=== PATIENT | male | born 1945 | race African-American/Black ===

== ENCOUNTER 2018-12-08 14:24 | Inpatient (IN) ==
[2018-12-08 15:04] LABS: Basophils # 0.1 10*3/uL (0.0-0.2); Basophils % 0.9 % (0.0-0.8); Eosinophils % 0.3 % (0.00-10.9); Hematocrit 34.7 VOL% (42.0-52.0); Hemoglobin 11.7 GM/DL (14.0-18.0); Immature Granulocytes % 0.5 %; Immature Granulocytes Absolute 0.03 #; Lymphocytes # 0.5 10*3/uL (1.4-4.0); Lymphocytes % 8.6 % (21.2-54.2); Mean Corpuscular HGB Conc 33.7 GM/DL (32-36); Mean Corpuscular Volume 86.1 FL (87-102); Mean Platelet Volume 9.1 FL (9.6-12.0); Monocytes % 8.9 % (1.7-12.7); Neutrophils % 80.8 % (38.7-73.9); Platelet Count 212 T/CUMM (130-400); Red Blood Count 4.03 MC/CUMM (3.8-5.5); Red Cell Distribution Width 20.7 % (9.3-17.3); White Blood Count 5.8 T/CUMM (4-12)
[2018-12-08 15:11] LABS: PT Patient Result 10.4 SECS (9.6-12.2); Partial Thromboplastin Time 26.3 SECS (20.8-36.0)
[2018-12-08 15:17] LABS: Albumin 3.1 G/DL (3.4-5.0); Bilirubin,Total 0.6 MG/DL (0.2-1.0); Calcium 8.8 MG/DL (8.5-10.1); Osmolality,Calculated 278.4 MOS/KG (273-304); Total Protein 7.8 G/DL (6.4-8.3)
[2018-12-08 15:55] LABS: Barbiturates Screen,Urine Negative (Negative); Benzodiazepines Screen,Urine Positive (Negative); Cannabinoid Screen,Urine Negative (Negative); Opiate Screen,Urine Negative (Negative); Phencyclidine Screen,Urine Negative (Negative)
[2018-12-08] MEDS ORDERED: NICOTINE 21 MG/24 HR PATCH TRANSDERM PRN (16:17)
[2018-12-08] MEDS ORDERED: THIAMINE INJ 100 MG, FOLIC ACID INJ 1 MG, MULTIVITAMIN INJ 10 ML in SODIUM CHLORIDE 0.9... IV ONE (16:17)
[2018-12-08] MEDS ORDERED: LORazepam 2 MG/1 ML VIAL IV PRN ×2 (16:17→20:46)
[2018-12-08] MEDS ORDERED: ONDANSETRON 4 MG/2 ML VIAL IV PRN (16:17)
[2018-12-08] MEDS: hydrALAZINE 20 MG/1 ML VIAL IV PRN ×2 (16:57→22:28)
[2018-12-08] MEDS: chlordiazePOXIDE 25 MG CAPSULE PO SCH ×2 (18:25→21:55)
[2018-12-08] MEDS ORDERED: DICYCLOMINE 10 MG CAPSULE PO PRN (20:46)
[2018-12-08] MEDS ORDERED: ALUMINUM/MAGNES/SIMETH MAX STR 30 ML UDCUP PO PRN (20:55)
[2018-12-08] MEDS: LORazepam 2 MG/1 ML VIAL IV SCH (22:27)
[2018-12-09] MEDS: SODIUM CHLORIDE 0.9% 1,000 ML IV SCH ×3 (01:00→09:29)
[2018-12-09] MEDS: LORazepam 2 MG/1 ML VIAL IV SCH ×5 (02:00→17:49)
[2018-12-09 05:04] LABS: Basophils # 0.1 10*3/uL (0.0-0.2); Basophils % 0.5 % (0.0-0.8); Hematocrit 32.7 VOL% (42.0-52.0); Hemoglobin 11.3 GM/DL (14.0-18.0); Immature Granulocytes % 0.9 %; Immature Granulocytes Absolute 0.13 #; Lymphocytes # 2.2 10*3/uL (1.4-4.0); Lymphocytes % 14.9 % (21.2-54.2); Mean Corpuscular HGB Conc 34.6 GM/DL (32-36); Mean Corpuscular Volume 84.1 FL (87-102); Mean Platelet Volume 9.5 FL (9.6-12.0); Monocytes % 12.2 % (1.7-12.7); Neutrophils % 71.5 % (38.7-73.9); Platelet Count 206 T/CUMM (130-400); Red Blood Count 3.89 MC/CUMM (3.8-5.5); Red Cell Distribution Width 20.4 % (9.3-17.3); White Blood Count 14.5 T/CUMM (4-12)
[2018-12-09 05:44] LABS: Albumin 2.8 G/DL (3.4-5.0); Bilirubin,Total 1.2 MG/DL (0.2-1.0); Calcium 8.6 MG/DL (8.5-10.1); Osmolality,Calculated 272.5 MOS/KG (273-304); Risk Ratio 1.45; Thyroid Stimulating Hormone 1.9 uIU/ml (0.358-3.74); VLDL CHOLESTEROL 13.8 MG/DL
[2018-12-09] MEDS: amLODIPine 5 MG TABLET PO SCH (09:28)
[2018-12-09] MEDS: PANTOPRAZOLE 40 MG TABLET PO SCH (09:28)
[2018-12-09] MEDS ORDERED: POTASSIUM CHLORIDE INJ 40 MEQ in SODIUM CHLORIDE 0.9% 1,000 ML IV SCH (10:00)
[2018-12-09] MEDS ORDERED: MAGNESIUM SULF RIDER 2 GM in PREMIX 1 EACH IV ONE (11:12)
[2018-12-09] MEDS: THIAMINE 100 MG TABLET PO SCH (11:52)
[2018-12-09] MEDS: SODIUM CHLOR 0.9% KCL 40 MEQ 40 MEQ/1,000 ML BAG IV SCH (11:53)
[2018-12-10] MEDS: SODIUM CHLOR 0.9% KCL 40 MEQ 40 MEQ/1,000 ML BAG IV SCH ×2 (01:07→04:38)
[2018-12-10] MEDS: LORazepam 2 MG/1 ML VIAL IV SCH ×3 (01:13→10:19)
[2018-12-10] MEDS: hydrALAZINE 20 MG/1 ML VIAL IV PRN (04:55)
[2018-12-10 05:43] LABS: Basophils % 0.2 % (0.0-0.8); Hematocrit 34.6 VOL% (42.0-52.0); Hemoglobin 11.9 GM/DL (14.0-18.0); Immature Granulocytes % 1.1 %; Immature Granulocytes Absolute 0.19 #; Lymphocytes # 1.2 10*3/uL (1.4-4.0); Lymphocytes % 6.8 % (21.2-54.2); Mean Corpuscular HGB Conc 34.4 GM/DL (32-36); Mean Corpuscular Volume 85.2 FL (87-102); Mean Platelet Volume 10.2 FL (9.6-12.0); Monocytes % 12.5 % (1.7-12.7); Neutrophils % 79.4 % (38.7-73.9); Platelet Count 228 T/CUMM (130-400); Red Blood Count 4.06 MC/CUMM (3.8-5.5); Red Cell Distribution Width 20.3 % (9.3-17.3); White Blood Count 17.1 T/CUMM (4-12)
[2018-12-10 06:11] LABS: Albumin 2.8 G/DL (3.4-5.0); Bilirubin,Total 1.7 MG/DL (0.2-1.0); Calcium 8.8 MG/DL (8.5-10.1); Osmolality,Calculated 267.8 MOS/KG (273-304); Total Protein 7.2 G/DL (6.4-8.3)
[2018-12-10] MEDS: amLODIPine 5 MG TABLET PO SCH (08:57)
[2018-12-10] MEDS: PANTOPRAZOLE 40 MG TABLET PO SCH (08:57)
[2018-12-10] MEDS: MAGNESIUM OXIDE 400 MG TABLET PO SCH ×2 (08:57→20:35)
[2018-12-10] MEDS: THIAMINE 100 MG TABLET PO SCH (08:57)
[2018-12-10 11:59] LABS: Apearance,Urine CLOUDY (Clear); Bacteria,Urine Occasional /HPF (Few); Bilirubin,Urine Negative (Negative); Blood, Urine Large mg/dL (Negative); Glucose,Urine (UA) Negative (Negative); Ketones,Urine 20 mg/dL (Negative); Nitrite,Urine Positive (Negative); Protein,Urine 30 MG/DL; RBC,Urine 46 /HPF (0-4); Squamous Epithelial Cell,Urine Occasional /HPF (0-10); Urine Color Yellow (Yellow); Urine Specific Gravity 1.011 (1.001-1.035); WBC,Urine 151 /HPF (0-6)
[2018-12-10] MEDS: DEXT 5% NACL 0.45% KCL 40 MEQ 40 MEQ/1,000 ML BAG IV SCH ×2 (12:50→20:34)
[2018-12-10] MEDS: HydrOXYzine PAMOATE 25 MG CAPSULE PO PRN (21:54)
[2018-12-10] MEDS: traZODone 50 MG TABLET PO PRN (21:55)
[2018-12-10] MEDS: IBUPROFEN 600 MG TABLET PO PRN (23:09)
[2018-12-11 04:51] LABS: Basophils % 0.1 % (0.0-0.8); Eosinophils % 0.1 % (0.00-10.9); Hematocrit 28.4 VOL% (42.0-52.0); Hemoglobin 9.9 GM/DL (14.0-18.0); Immature Granulocytes % 1.6 %; Immature Granulocytes Absolute 0.24 #; Lymphocytes # 1.2 10*3/uL (1.4-4.0); Lymphocytes % 8.2 % (21.2-54.2); Mean Corpuscular HGB Conc 34.9 GM/DL (32-36); Mean Corpuscular Volume 83.5 FL (87-102); Mean Platelet Volume 9.6 FL (9.6-12.0); Monocytes % 10.6 % (1.7-12.7); Neutrophils % 79.4 % (38.7-73.9); Platelet Count 197 T/CUMM (130-400); Red Cell Distribution Width 19.9 % (9.3-17.3); White Blood Count 15.1 T/CUMM (4-12)
[2018-12-11 05:29] LABS: Calcium 8.3 MG/DL (8.5-10.1)
[2018-12-11 07:53] LABS: Band Neutrophils 1 % (0-10); Hypochromasia 1+; Lymphocytes 3 % (20-55); Metamyelocytes 1 %; Microcytosis 1+; Polychromasia Slight; Segmented Neutrophils 91 % (50-85); Total Cells Counted 100
[2018-12-11 07:54] LABS: Anisocytosis 2+; Ovalocytes Slight
[2018-12-11 07:55] LABS: Platelet Estimate Adequate; Spherocytes Few; Stomatocytes Slight; Tear Drop Cells Slight
[2018-12-11] MEDS: PANTOPRAZOLE 40 MG TABLET PO SCH (09:30)
[2018-12-11] MEDS: amLODIPine 5 MG TABLET PO SCH (09:30)
[2018-12-11] MEDS: MAGNESIUM OXIDE 400 MG TABLET PO SCH ×2 (09:30→20:45)
[2018-12-11] MEDS: THIAMINE 100 MG TABLET PO SCH (09:30)
[2018-12-11] MEDS: DEXT 5% NACL 0.45% KCL 40 MEQ 40 MEQ/1,000 ML BAG IV SCH ×2 (09:31→14:18)
[2018-12-11] MEDS: IBUPROFEN 600 MG TABLET PO PRN ×2 (09:35→21:20)
[2018-12-11] MEDS: predniSONE 20 MG TABLET PO SCH ×2 (10:47→20:45)
[2018-12-11] MEDS ORDERED: MAGNESIUM SULF RIDER 2 GM in PREMIX 1 EACH IV ONE (12:14)
[2018-12-11] MEDS: cefTRIAXone 2,000 MG in SYRINGE 1 EACH IV SCH (14:18)
[2018-12-11] MEDS: METHOCARBAMOL 750 MG TABLET PO PRN (17:52)
[2018-12-12] MEDS: DEXT 5% NACL 0.45% KCL 40 MEQ 40 MEQ/1,000 ML BAG IV SCH ×2 (01:50→09:59)
[2018-12-12 04:54] LABS: Basophils % 0.1 % (0.0-0.8); Hematocrit 27.5 VOL% (42.0-52.0); Hemoglobin 9.6 GM/DL (14.0-18.0); Immature Granulocytes % 0.8 %; Immature Granulocytes Absolute 0.12 #; Lymphocytes # 0.4 10*3/uL (1.4-4.0); Lymphocytes % 2.4 % (21.2-54.2); Mean Corpuscular HGB Conc 34.9 GM/DL (32-36); Mean Corpuscular Volume 83.6 FL (87-102); Mean Platelet Volume 10.4 FL (9.6-12.0); Monocytes % 5.2 % (1.7-12.7); Neutrophils % 91.5 % (38.7-73.9); Platelet Count 239 T/CUMM (130-400); Red Blood Count 3.29 MC/CUMM (3.8-5.5); Red Cell Distribution Width 19.7 % (9.3-17.3); White Blood Count 15.9 T/CUMM (4-12)
[2018-12-12 05:25] LABS: Calcium 8.9 MG/DL (8.5-10.1); Osmolality,Calculated 275.7 MOS/KG (273-304)
[2018-12-12 05:43] LABS: Lymphocytes 3 % (20-55); Segmented Neutrophils 94 % (50-85); Total Cells Counted 100
[2018-12-12 05:44] LABS: Anisocytosis 1+; Platelet Estimate Adequate; Target Cells 1+; Tear Drop Cells Few
[2018-12-12] MEDS: IBUPROFEN 600 MG TABLET PO PRN ×2 (09:58→21:40)
[2018-12-12] MEDS: amLODIPine 5 MG TABLET PO SCH (09:59)
[2018-12-12] MEDS: THIAMINE 100 MG TABLET PO SCH (09:59)
[2018-12-12] MEDS: predniSONE 20 MG TABLET PO SCH ×2 (09:59→21:40)
[2018-12-12] MEDS: METHOCARBAMOL 750 MG TABLET PO PRN (09:59)
[2018-12-12] MEDS: PANTOPRAZOLE 40 MG TABLET PO SCH (09:59)
[2018-12-12] MEDS: MAGNESIUM OXIDE 400 MG TABLET PO SCH ×2 (09:59→21:40)
[2018-12-12] MEDS: cefTRIAXone 2,000 MG in SYRINGE 1 EACH IV SCH (12:25)
[2018-12-13] MEDS: DEXT 5% NACL 0.45% KCL 40 MEQ 40 MEQ/1,000 ML BAG IV SCH ×3 (03:35→20:40)
[2018-12-13] MEDS: THIAMINE 100 MG TABLET PO SCH (08:39)
[2018-12-13] MEDS: amLODIPine 5 MG TABLET PO SCH (08:39)
[2018-12-13] MEDS: METHOCARBAMOL 750 MG TABLET PO PRN (08:39)
[2018-12-13] MEDS: PANTOPRAZOLE 40 MG TABLET PO SCH (08:39)
[2018-12-13] MEDS: IBUPROFEN 600 MG TABLET PO PRN (08:39)
[2018-12-13] MEDS: predniSONE 20 MG TABLET PO SCH ×2 (08:40→20:40)
[2018-12-13] MEDS: MAGNESIUM OXIDE 400 MG TABLET PO SCH ×2 (08:40→20:40)
[2018-12-13] MEDS: cefTRIAXone 2,000 MG in SYRINGE 1 EACH IV SCH (12:55)
[2018-12-13] MEDS: ALLOPURINOL 100 MG TABLET PO SCH (12:55)
[2018-12-14] MEDS: DEXT 5% NACL 0.45% KCL 40 MEQ 40 MEQ/1,000 ML BAG IV SCH ×3 (05:15→23:15)
[2018-12-14] MEDS: IBUPROFEN 600 MG TABLET PO PRN ×3 (08:11→21:30)
[2018-12-14] MEDS: MAGNESIUM OXIDE 400 MG TABLET PO SCH ×2 (08:11→21:30)
[2018-12-14] MEDS: THIAMINE 100 MG TABLET PO SCH (08:12)
[2018-12-14] MEDS: predniSONE 20 MG TABLET PO SCH ×2 (08:12→21:30)
[2018-12-14] MEDS: PANTOPRAZOLE 40 MG TABLET PO SCH (08:12)
[2018-12-14] MEDS: amLODIPine 5 MG TABLET PO SCH (08:13)
[2018-12-14] MEDS: ALLOPURINOL 100 MG TABLET PO SCH (08:13)
[2018-12-14] MEDS: cefTRIAXone 2,000 MG in SYRINGE 1 EACH IV SCH (15:03)
[2018-12-14] MEDS: levETIRAcetam 500 MG TABLET PO SCH (21:30)
[2018-12-14] MEDS: METHOCARBAMOL 750 MG TABLET PO PRN (21:30)
[2018-12-15] MEDS: DEXT 5% NACL 0.45% KCL 40 MEQ 40 MEQ/1,000 ML BAG IV SCH (07:31)
[2018-12-15] MEDS: MAGNESIUM OXIDE 400 MG TABLET PO SCH ×2 (09:30→21:02)
[2018-12-15] MEDS: PANTOPRAZOLE 40 MG TABLET PO SCH (09:30)
[2018-12-15] MEDS: amLODIPine 5 MG TABLET PO SCH (09:31)
[2018-12-15] MEDS: THIAMINE 100 MG TABLET PO SCH (09:31)
[2018-12-15] MEDS: ALLOPURINOL 100 MG TABLET PO SCH (09:31)
[2018-12-15] MEDS: levETIRAcetam 500 MG TABLET PO SCH ×2 (09:31→21:02)
[2018-12-15] MEDS: predniSONE 20 MG TABLET PO SCH ×2 (09:31→21:02)
[2018-12-15] MEDS: HydrOXYzine PAMOATE 25 MG CAPSULE PO PRN (10:35)
[2018-12-15] MEDS: cefTRIAXone 2,000 MG in SYRINGE 1 EACH IV SCH (14:31)
[2018-12-15] MEDS: IBUPROFEN 600 MG TABLET PO PRN (14:39)
[2018-12-15] MEDS: ACETAMINOPHEN 500 MG TABLET PO PRN (21:03)
[2018-12-16] MEDS: DEXT 5% NACL 0.45% KCL 40 MEQ 40 MEQ/1,000 ML BAG IV SCH ×5 (00:30→17:48)
[2018-12-16] MEDS: ALLOPURINOL 100 MG TABLET PO SCH (08:57)
[2018-12-16] MEDS: levETIRAcetam 500 MG TABLET PO SCH ×2 (08:57→21:19)
[2018-12-16] MEDS: amLODIPine 5 MG TABLET PO SCH (08:57)
[2018-12-16] MEDS: predniSONE 20 MG TABLET PO SCH ×2 (08:57→21:19)
[2018-12-16] MEDS: MAGNESIUM OXIDE 400 MG TABLET PO SCH ×2 (08:57→21:19)
[2018-12-16] MEDS: IBUPROFEN 600 MG TABLET PO PRN ×2 (08:57→21:23)
[2018-12-16] MEDS: THIAMINE 100 MG TABLET PO SCH (08:58)
[2018-12-16] MEDS: PANTOPRAZOLE 40 MG TABLET PO SCH (08:58)
[2018-12-16] MEDS: cefTRIAXone 2,000 MG in SYRINGE 1 EACH IV SCH (13:28)
[2018-12-16] MEDS: HydrOXYzine PAMOATE 25 MG CAPSULE PO PRN (21:22)
[2018-12-17] MEDS: predniSONE 20 MG TABLET PO SCH ×2 (08:35→20:39)
[2018-12-17] MEDS: levETIRAcetam 500 MG TABLET PO SCH ×2 (08:35→20:39)
[2018-12-17] MEDS: THIAMINE 100 MG TABLET PO SCH (08:35)
[2018-12-17] MEDS: MAGNESIUM OXIDE 400 MG TABLET PO SCH ×2 (08:35→20:39)
[2018-12-17] MEDS: ALLOPURINOL 100 MG TABLET PO SCH (08:35)
[2018-12-17] MEDS: amLODIPine 5 MG TABLET PO SCH (08:35)
[2018-12-17] MEDS: PANTOPRAZOLE 40 MG TABLET PO SCH (08:35)
[2018-12-17] MEDS: DEXT 5% NACL 0.45% KCL 40 MEQ 40 MEQ/1,000 ML BAG IV SCH ×3 (09:09→21:09)
[2018-12-17] MEDS: cefTRIAXone 2,000 MG in SYRINGE 1 EACH IV SCH (13:01)
[2018-12-17] MEDS: IBUPROFEN 600 MG TABLET PO PRN (15:36)
[2018-12-17] MEDS: ACETAMINOPHEN 500 MG TABLET PO PRN (20:39)
[2018-12-17] MEDS: HydrOXYzine PAMOATE 25 MG CAPSULE PO PRN (20:39)
[2018-12-18] MEDS: IBUPROFEN 600 MG TABLET PO PRN (04:33)
[2018-12-18] MEDS: amLODIPine 5 MG TABLET PO SCH (08:49)
[2018-12-18] MEDS: MAGNESIUM OXIDE 400 MG TABLET PO SCH ×2 (08:49→20:58)
[2018-12-18] MEDS: THIAMINE 100 MG TABLET PO SCH (08:49)
[2018-12-18] MEDS: levETIRAcetam 500 MG TABLET PO SCH ×2 (08:49→20:58)
[2018-12-18] MEDS: PANTOPRAZOLE 40 MG TABLET PO SCH (08:49)
[2018-12-18] MEDS: ALLOPURINOL 100 MG TABLET PO SCH (08:49)
[2018-12-18] MEDS: predniSONE 20 MG TABLET PO SCH (08:49)
[2018-12-18] MEDS: METHOCARBAMOL 750 MG TABLET PO PRN ×2 (08:53→20:58)
[2018-12-18] MEDS: cefTRIAXone 2,000 MG in SYRINGE 1 EACH IV SCH (12:53)
[2018-12-18] MEDS: DEXT 5% NACL 0.45% KCL 40 MEQ 40 MEQ/1,000 ML BAG IV SCH (14:16)
[2018-12-18] MEDS: HydrOXYzine PAMOATE 25 MG CAPSULE PO PRN (20:58)
[2018-12-19] MEDS: IBUPROFEN 600 MG TABLET PO PRN (06:43)
[2018-12-19 08:20] LABS: Basophils % 0.2 % (0.0-0.8); Eosinophils # 0.1 10*3/uL (0.0-0.87); Eosinophils % 0.4 % (0.00-10.9); Hematocrit 30.2 VOL% (42.0-52.0); Hemoglobin 10.5 GM/DL (14.0-18.0); Immature Granulocytes % 3.4 %; Immature Granulocytes Absolute 0.54 #; Lymphocytes # 2.6 10*3/uL (1.4-4.0); Lymphocytes % 15.9 % (21.2-54.2); Mean Corpuscular HGB Conc 34.8 GM/DL (32-36); Mean Corpuscular Volume 83.9 FL (87-102); Mean Platelet Volume 9.2 FL (9.6-12.0); Monocytes % 9.7 % (1.7-12.7); Neutrophils % 70.4 % (38.7-73.9); Platelet Count 495 T/CUMM (130-400); White Blood Count 16.1 T/CUMM (4-12)
[2018-12-19 08:35] LABS: Calcium 8.7 MG/DL (8.5-10.1); Osmolality,Calculated 278.8 MOS/KG (273-304)
[2018-12-19 08:44] LABS: Lymphocytes 17 % (20-55); Segmented Neutrophils 76 % (50-85); Total Cells Counted 100
[2018-12-19 08:45] LABS: Hypochromasia 1+; Microcytosis 1+; Ovalocytes Slight; Platelet Estimate Increased
[2018-12-19] MEDS: levETIRAcetam 500 MG TABLET PO SCH ×2 (09:08→20:22)
[2018-12-19] MEDS: METOPROLOL TARTRATE 50 MG TABLET PO SCH ×2 (09:08→20:21)
[2018-12-19] MEDS: PANTOPRAZOLE 40 MG TABLET PO SCH (09:08)
[2018-12-19] MEDS: MAGNESIUM OXIDE 400 MG TABLET PO SCH ×2 (09:08→20:21)
[2018-12-19] MEDS: THIAMINE 100 MG TABLET PO SCH (09:08)
[2018-12-19] MEDS: predniSONE 10 MG TABLET PO SCH (09:08)
[2018-12-19] MEDS: ALLOPURINOL 100 MG TABLET PO SCH (09:08)
[2018-12-19] MEDS: METHOCARBAMOL 750 MG TABLET PO PRN (09:09)
[2018-12-19] MEDS: amLODIPine 5 MG TABLET PO SCH (10:22)
[2018-12-20] MEDS: IBUPROFEN 600 MG TABLET PO PRN (04:36)
[2018-12-20] MEDS: METOPROLOL TARTRATE 50 MG TABLET PO SCH ×2 (08:35→20:22)
[2018-12-20] MEDS: MAGNESIUM OXIDE 400 MG TABLET PO SCH ×2 (08:35→20:22)
[2018-12-20] MEDS: levETIRAcetam 500 MG TABLET PO SCH ×2 (08:35→20:22)
[2018-12-20] MEDS: PANTOPRAZOLE 40 MG TABLET PO SCH (08:35)
[2018-12-20] MEDS: THIAMINE 100 MG TABLET PO SCH (08:35)
[2018-12-20] MEDS: ALLOPURINOL 100 MG TABLET PO SCH (08:36)
[2018-12-20] MEDS: predniSONE 10 MG TABLET PO SCH (08:36)
[2018-12-20] MEDS: amLODIPine 5 MG TABLET PO SCH (12:12)
[2018-12-20] MEDS: METHOCARBAMOL 750 MG TABLET PO PRN (20:22)
[2018-12-20] MEDS: traZODone 50 MG TABLET PO PRN (20:22)
[2018-12-21] MEDS: THIAMINE 100 MG TABLET PO SCH (09:00)
[2018-12-21] MEDS: METOPROLOL TARTRATE 50 MG TABLET PO SCH ×2 (09:00→21:26)
[2018-12-21] MEDS: PANTOPRAZOLE 40 MG TABLET PO SCH (09:00)
[2018-12-21] MEDS: IBUPROFEN 600 MG TABLET PO PRN (09:00)
[2018-12-21] MEDS: ALLOPURINOL 100 MG TABLET PO SCH (09:01)
[2018-12-21] MEDS: amLODIPine 5 MG TABLET PO SCH (09:01)
[2018-12-21] MEDS: levETIRAcetam 500 MG TABLET PO SCH ×2 (09:01→21:25)
[2018-12-21] MEDS: MAGNESIUM OXIDE 400 MG TABLET PO SCH ×2 (09:01→21:25)
[2018-12-21] MEDS: predniSONE 10 MG TABLET PO SCH (09:15)
[2018-12-21 09:58] LABS: Basophils # 0.1 10*3/uL (0.0-0.2); Basophils % 0.3 % (0.0-0.8); Eosinophils # 0.2 10*3/uL (0.0-0.87); Eosinophils % 1.5 % (0.00-10.9); Hematocrit 27.4 VOL% (42.0-52.0); Hemoglobin 9.6 GM/DL (14.0-18.0); Immature Granulocytes % 1.9 %; Immature Granulocytes Absolute 0.28 #; Lymphocytes # 3.3 10*3/uL (1.4-4.0); Lymphocytes % 22.3 % (21.2-54.2); Mean Corpuscular Volume 84.3 FL (87-102); Mean Platelet Volume 8.9 FL (9.6-12.0); Monocytes % 8.9 % (1.7-12.7); Neutrophils % 65.1 % (38.7-73.9); Platelet Count 406 T/CUMM (130-400); Red Blood Count 3.25 MC/CUMM (3.8-5.5); Red Cell Distribution Width 20.1 % (9.3-17.3); White Blood Count 14.6 T/CUMM (4-12)
[2018-12-21 10:23] LABS: Calcium 8.2 MG/DL (8.5-10.1); Osmolality,Calculated 282.5 MOS/KG (273-304)
[2018-12-21] MEDS: ASPIRIN EC 81 MG TABLET PO SCH (12:30)
[2018-12-21] MEDS: traZODone 50 MG TABLET PO PRN (21:25)
[2018-12-21] MEDS: METHOCARBAMOL 750 MG TABLET PO PRN (21:25)
[2018-12-22] MEDS: METHOCARBAMOL 750 MG TABLET PO PRN ×2 (03:57→20:52)
[2018-12-22] MEDS: METOPROLOL TARTRATE 50 MG TABLET PO SCH ×2 (09:08→20:52)
[2018-12-22] MEDS: amLODIPine 5 MG TABLET PO SCH (09:08)
[2018-12-22] MEDS: levETIRAcetam 500 MG TABLET PO SCH ×2 (09:08→20:51)
[2018-12-22] MEDS: MAGNESIUM OXIDE 400 MG TABLET PO SCH ×2 (09:08→20:51)
[2018-12-22] MEDS: PANTOPRAZOLE 40 MG TABLET PO SCH (09:08)
[2018-12-22] MEDS: ASPIRIN EC 81 MG TABLET PO SCH (09:08)
[2018-12-22] MEDS: predniSONE 10 MG TABLET PO SCH (09:09)
[2018-12-22] MEDS: THIAMINE 100 MG TABLET PO SCH (09:09)
[2018-12-22] MEDS: ALLOPURINOL 100 MG TABLET PO SCH (09:09)
[2018-12-22] MEDS: IBUPROFEN 600 MG TABLET PO PRN (20:54)
[2018-12-23 05:15] LABS: Basophils % 0.2 % (0.0-0.8); Eosinophils # 0.1 10*3/uL (0.0-0.87); Eosinophils % 0.8 % (0.00-10.9); Hematocrit 26.9 VOL% (42.0-52.0); Hemoglobin 9.2 GM/DL (14.0-18.0); Immature Granulocytes % 1.2 %; Lymphocytes # 2.2 10*3/uL (1.4-4.0); Lymphocytes % 12.7 % (21.2-54.2); Mean Corpuscular HGB Conc 34.2 GM/DL (32-36); Mean Corpuscular Volume 83.8 FL (87-102); Mean Platelet Volume 9.1 FL (9.6-12.0); Monocytes % 7.1 % (1.7-12.7); Platelet Count 392 T/CUMM (130-400); Red Blood Count 3.21 MC/CUMM (3.8-5.5); Red Cell Distribution Width 19.9 % (9.3-17.3); White Blood Count 17.1 T/CUMM (4-12)
[2018-12-23 05:24] LABS: Calcium 8.7 MG/DL (8.5-10.1); Osmolality,Calculated 290.1 MOS/KG (273-304)
[2018-12-23] MEDS: PANTOPRAZOLE 40 MG TABLET PO SCH (09:14)
[2018-12-23] MEDS: levETIRAcetam 500 MG TABLET PO SCH ×2 (09:14→20:19)
[2018-12-23] MEDS: amLODIPine 5 MG TABLET PO SCH (09:14)
[2018-12-23] MEDS: ALLOPURINOL 100 MG TABLET PO SCH (09:14)
[2018-12-23] MEDS: METOPROLOL TARTRATE 50 MG TABLET PO SCH ×2 (09:14→20:20)
[2018-12-23] MEDS: THIAMINE 100 MG TABLET PO SCH (09:14)
[2018-12-23] MEDS: ASPIRIN EC 81 MG TABLET PO SCH (09:14)
[2018-12-23] MEDS: MAGNESIUM OXIDE 400 MG TABLET PO SCH ×2 (09:14→20:19)
[2018-12-23] MEDS ORDERED: TUBERCULIN SKIN TEST 0.1 ML SYRINGE INTRADERM ONE (15:18)
[2018-12-23] MEDS: IBUPROFEN 600 MG TABLET PO PRN (20:19)
[2018-12-23] MEDS: traZODone 50 MG TABLET PO PRN (20:20)
[2018-12-24] MEDS: THIAMINE 100 MG TABLET PO SCH (08:29)
[2018-12-24] MEDS: MAGNESIUM OXIDE 400 MG TABLET PO SCH ×2 (08:29→21:07)
[2018-12-24] MEDS: levETIRAcetam 500 MG TABLET PO SCH ×2 (08:30→21:07)
[2018-12-24] MEDS: ALLOPURINOL 100 MG TABLET PO SCH (08:30)
[2018-12-24] MEDS: PANTOPRAZOLE 40 MG TABLET PO SCH (08:30)
[2018-12-24] MEDS: ASPIRIN EC 81 MG TABLET PO SCH (08:30)
[2018-12-24] MEDS: amLODIPine 5 MG TABLET PO SCH (08:30)
[2018-12-24] MEDS: METOPROLOL TARTRATE 50 MG TABLET PO SCH ×2 (08:31→21:07)
[2018-12-24] MEDS ORDERED: predniSONE 5 MG TABLET PO SCH (09:00)
[2018-12-24] MEDS: IBUPROFEN 600 MG TABLET PO PRN (16:07)
[2018-12-24] MEDS: METHOCARBAMOL 750 MG TABLET PO PRN (21:07)
[2018-12-24] MEDS: traZODone 50 MG TABLET PO PRN (21:09)
[2018-12-25] MEDS: IBUPROFEN 600 MG TABLET PO PRN (04:01)
[2018-12-25] MEDS: MAGNESIUM OXIDE 400 MG TABLET PO SCH (08:29)
[2018-12-25] MEDS: ASPIRIN EC 81 MG TABLET PO SCH (08:29)
[2018-12-25] MEDS: THIAMINE 100 MG TABLET PO SCH (08:29)
[2018-12-25] MEDS: ALLOPURINOL 100 MG TABLET PO SCH (08:29)
[2018-12-25] MEDS: amLODIPine 5 MG TABLET PO SCH (08:30)
[2018-12-25] MEDS: levETIRAcetam 500 MG TABLET PO SCH (08:30)
[2018-12-25] MEDS: PANTOPRAZOLE 40 MG TABLET PO SCH (08:31)
[2018-12-25] MEDS: METOPROLOL TARTRATE 50 MG TABLET PO SCH (08:31)
[2018-12-25 12:04] VITALS: BP 113/62
== END 2018-12-25 13:10 | DRG 897 ==
LOC: N.ED 14:24 → N.EDINP 15:44 → INTOOBSV 15:44 → N.4E 16:22 → SUATTDRO 12-11 14:55
PROVIDERS: ADMIT Emergency Medicine; ATTEND Internal Medicine